=== PATIENT | male | born 1990 | race Caucasian/White ===

== ENCOUNTER 2023-06-09 20:34 | Emergency (ER) | payer OTHER ==
[2023-06-09] MEDS ORDERED: Amoxicillin/Potassium Clav 875 MG TAB ONE (21:14)
[2023-06-09] MEDS ORDERED: traMADol HCl 50 MG TAB ONE (21:14)
== END 2023-06-09 21:22 | disposition home or self-care (01) ==
LOC: BURERS 20:34
DX: S92.421A Displaced fracture of distal phalanx of right great toe, initial encounter for closed fracture (principal); W22.01XA Walked into wall, initial encounter